=== PATIENT | male | born 1960 | race Caucasian/White ===

== ENCOUNTER 2016-10-16 05:24 | Day surgery (SDC) | payer OTHER ==
[2016-10-05 15:02] VITALS: BMI 52.0
--- NOTE | 2016-10-05 15:32 | PAT Medication Instructions ---
Service Date Oct 05, 2016. Current Home Medication List Acetaminophen (Tylenol Arthritis Ext Rel), 1,300 MG PO TID PRN for RN Bisoprolol Fumarate (Bisoprolol Fumarate), 10 MG PO QAM Calcium Polycarbophil (Fibercon), 2 CAP PO BID Cholecalciferol (Vitamin D3), 4,000 UNITS PO QPM Hydrochlorothiazide (Hydrochlorothiazide), 1 TAB PO QAM Lovastatin (Mevacor), 20 MG PO HS Ocuvite Preservision (Ocuvite Preservision), 1 TAB PO BID Omeprazole (Prilosec), 20 MG PO QAM Oxygen (Oxygen), 3 LITERS NA CPAP Medication Instructions For Your Scheduled Surgery - Hold the following medications the morning of surgery: Ocuvite Preservision (Ocuvite Preservision), 1 TAB PO BID Hydrochlorothiazide (Hydrochlorothiazide), 1 TAB PO QAM Calcium Polycarbophil (Fibercon), 2 CAP PO BID - Take the following medications the morning of surgery with a sip of water OTHERWISE NOTHING TO EAT OR DRINK AFTER MIDNIGHT: Omeprazole (Prilosec), 20 MG PO QAM Bisoprolol Fumarate (Bisoprolol Fumarate), 10 MG PO QAM Acetaminophen (Tylenol Arthritis Ext Rel), 1,300 MG PO TID PRN (may take if needed up to 4 hours prior to surgery) - Take the following medications as scheduled the night before surgery: Cholecalciferol (Vitamin D3), 4,000 UNITS PO QPM Lovastatin (Mevacor), 20 MG PO HS Ocuvite Preservision (Ocuvite Preservision), 1 TAB PO BID Calcium Polycarbophil (Fibercon), 2 CAP PO BID Acetaminophen (Tylenol Arthritis Ext Rel), 1,300 MG PO TID PRN for RN If you have any questions please call us at [phone] or [phone] or [phone]
[2016-10-05 15:58] LABS: BASO % 0.6 %; BASO ABS # 0.05 K/uL (0-0.2); COMPLETE YES; EOS % 2.4 %; HEMATOCRIT 43.4 % (42-52); IG% 0.8 %; LYMPH % 22.3 %; LYMPH ABS # 1.74 K/uL (1.2-3.4); MEAN CELL VOLUME 90.6 fL (80-100); MEAN CORPUSCULAR HEMOGLOBIN 30.3 pg (25-34); MEAN CORPUSCULAR HGB CONC 33.4 g/dl (32-36); MEAN PLATELET VOLUME 10.8 fL (7.4-10.4); MONO % 7.4 %; NEUT % 66.5 %; PLATELET COUNT 189 K/uL (130-400); RED BLOOD COUNT 4.79 M/uL (4.7-6.1)
[2016-10-05 16:18] LABS: BUN/CREATININE RATIO 12.8 (10-20); CALCIUM 8.8 mg/dl (8.5-10.1); CREATININE 1.3 mg/dl (0.60-1.40); POTASSIUM 4.4 mmol/L (3.5-5.1)
--- NOTE | 2016-10-05 16:26 | DIAGNOSTIC IMAGING REPORT ---
CHEST 2 VIEWS ROUTINE CLINICAL HISTORY: Preoperative chest COMPARISON STUDY: No previous studies for comparison. FINDINGS: The heart is mildly enlarged. There is superior mediastinal widening. While this may be secondary to fat deposition given the patient's body habitus, the finding is nonspecific. If further evaluation is desired, CT scanning could be obtained. There is mild interstitial thickening, a finding which may be accentuated by the patient's large body habitus. There is no focal pulmonary consolidation. There is no overt failure. There are no pleural effusions. Degenerative changes are present within the dorsal spine.[ IMPRESSION: Nonspecific soft tissue fullness of the mediastinum. While this may simply represent mediastinal fat deposition, other pathologic processes cannot be excluded. Electronically signed by: Darin Yoon M.D. 10/05/2016 4:24 PM Dictated Date/Time: 10/05/2016 4:22 PM
--- NOTE | 2016-10-15 15:10 | HISTORY & PHYSICAL EXAMINATION ---
DATE OF ADMISSION: 10/16/2016 HISTORY OF PRESENT ILLNESS: The patient is a 56-year-old white male presenting with right hand pain and deformity with loss of motion on the right side of the small finger and ringer finger with a Dupuytren's contracture. The patient notes that it is inhibiting his daily function and would like to have it fixed. PAST MEDICAL HISTORY: Hypertension, dyslipidemia, rheumatoid arthritis, lower back pain, acid reflux, obesity, right kidney cancer. PAST SURGICAL HISTORY: Right kidney removed in 2009. CURRENT MEDICATIONS: O2 oxygen 3 liters per minute, CPAP machine while sleeping with oxygen, 10 mg bisoprolol, fumarate tablet once daily, 650 mg Tylenol Arthritis caplet as needed, PreserVision AREDS twice a day, 625 mg Fibercon caplets twice a day, 20 mg omeprazole capsule once a day, 2000 international units vitamin D3 two per day, 12.5 mg hydrochlorothiazide once daily, 20 mg lovastatin once daily. ALLERGIES: CIPRO, MORPHINE, PENICILLIN, PROVENTIL, Z-REFUGIO, AND SULFA MEDICATION. REVIEW OF SYSTEMS: GENERAL: No night sweats, fevers, chills. CARDIOVASCULAR: No palpitations, he does have dyspnea on exertion. RESPIRATORY: He has complaints of shortness of breath with exertional activity. No palpitations. GI: No nausea, vomiting, diarrhea. : No dysuria, urgency or frequency. PHYSICAL EXAMINATION: HEART: Regular rate and rhythm. No murmur, gallops, or rubs. LUNGS: Clear to auscultation bilaterally. No rales, wheezing or rhonchi. ABDOMEN: Active bowel sounds x4. EXTREMITIES: Right hand shows contracture of the right small finger PIP joint 55 degree contracture, DIP 25 degree contracture, ring finger MP joint is about 10 degrees contracture. DIAGNOSIS: Right hand Dupuytren's of the ring and small finger. PLAN: The patient will be set up for a right hand small finger and ring finger palmar fasciectomy with Dr. Mireles.
[~2016-10-16] VITALS: Ht 188 cm; Wt 184.9 kg
[~2016-10-16 05:24] MED LIST: ACET1TAB84 PO; BISO10TA4 PO; CALC625T PO; CHOL20007 PO; HYDR12.55 PO; LOVA20TA4 PO; MULT-190 PO; OXGN; PRLSR20 PO
[2016-10-16] MEDS ORDERED: LACTATED RINGER'S 1000ML 1,000 ML IV SCH (06:00)
[2016-10-16] MEDS ORDERED: CLINDAMYCIN 600 MG/54 ML D5W IV SCH (06:00)
[2016-10-16 06:05] VITALS: BP 171/65; PULSE 56; TEMP 36.4; O2SAT 96; Ht 188 cm; Wt 184.9 kg
[2016-10-16] MEDS ORDERED: MIDAZOLAM HCL 1 MG/ML 2ML VIAL ONE ×2 (06:38→07:35)
[2016-10-16] MEDS ORDERED: FENTANYL CITRATE INJ 50 MCG/1 ML 2 ML VIAL ONE (06:38)
[2016-10-16] MEDS ORDERED: BUPIVACAINE 0.5 % 5 MG/1 ML MPF 30ML VIAL ONE (06:56)
[2016-10-16] MEDS ORDERED: BUPIVACAINE/EPINEPHRINE 0.5% MPF 1:200,000 30 ML VIAL ONE (06:57)
--- NOTE | 2016-10-16 07:18 | History & Physical Bridge Note ---
H&P Re-Evaluation Bridge Note: I have examined the patient, reviewed the History & Physical and in the interval since the performance of the History & Physical I have noted the following changes of clinical significance: No changes noted I review the PCP note and the PAT testing and evaluation. I d/w Dr Viveros how to best proceed. He feels it is safe to procced with LMAC v General and sedation is not a contradictation
[2016-10-16] MEDS ORDERED: OXYC-57 PO ×2 (07:25→08:29)
--- NOTE | 2016-10-16 07:29 | Discharge Instructions ---
Discharge Instructions Date of Service Oct 16, 2016. Admission Reason for Admission: Right Small & Ring Fingers Dupuytrens Contracture Discharge Discharge Diagnosis / Problem: s/p dupuytrens surgery Discharge Goals Goal(s): Improve function Activity Recommendations Activity Limitations: as noted below Lifting Limitations: no more than 5 pounds Exercise/Sports Limitations: rest today, gradually increase as tolerated May Resume Sexual Activity: when tolerated Shower/Bathe: keep incision dry . Instructions / Follow-Up Instructions / Follow-Up ACTIVITY RECOMMENDATIONS: * Avoid lifting anything heavier than a medium water glass until your first post operative visit. SPECIAL CARE INSTRUCTIONS: * Your bandage should be left in place until seen by Physical Therapy. * Some drainage onto the dressing may occur. This is normal. * If the bandage feels excessively tight, you may loosen the elastic bandage. Then call the physician's office for further instructions. * If possible, keep your hand elevated above the level of your heart for the first 2 post operative days. You may use a sling if necessary. * You should move your fingers regularly (50-100 motions per hour) unless otherwise instructed. SPECIAL PRECAUTIONS: * If you notice increased drainage, fever over 101 degrees F. or severe, unremitting pain, call your physician/office at . * You may have been prescribed pain medication. If you experience nausea and/or skin rash, discontinue this medication and contact our office for an alternative medication. FOLLOW UP VISIT: If appointment is not already scheduled: Please call [facility] to make a follow-up appointment after your surgery at . SHOULD BE SEEN BY PHYSICAL THERAPY IN 3-5 DAYS, AND THEN DR GARCIA OR HIS PA IN 10-14 DAYS ICE AND ELVEATE THE HAND KEEP THE CAST ON AND CLEAN AND DRY UNTIL SEEN BY PT Current Hospital Diet Patient's current hospital diet: Discharge Diet Recommended Diet: Regular Diet Pending Studies Studies pending at discharge: no Medical Emergencies . Who to Call and When: Medical Emergencies: If at any time you feel your situation is an emergency, please call 911 immediately. . Non-Emergent Contact Non-Emergency issues call your: Primary Care Provider . "Provider Documentation" section prepared by Richard Case. VTE Core Measure Inpt VTE Proph given/why not?: Contraindicated
[2016-10-16] MEDS ORDERED: LIDOCAINE HCL 1% 20 ML VIAL ONE (07:36)
[2016-10-16] MEDS ORDERED: ONDANSETRON INJ 2 MG/ML 2 ML VIAL IV PRN (08:00)
[2016-10-16] MEDS ORDERED: ATROPINE SULFATE 0.1 MG/ML 5ML SYR IV PRN (08:00)
[2016-10-16] MEDS ORDERED: EpHEDrine SULFATE INJ 50 MG/ML AMP IV PRN (08:00)
[2016-10-16] MEDS ORDERED: DEXAMETHASONE SOD INJ 4 MG/ML VIAL ONE (08:04)
[2016-10-16] MEDS ORDERED: ONDANSETRON INJ 2 MG/ML 2 ML VIAL ONE (08:04)
--- NOTE | 2016-10-16 08:44 | [facility] Post Operative Brief Note ---
Immediate Operative Summary Operative Date Oct 16, 2016. Pre-Operative Diagnosis Right hand Dupuytren's of the ring and small finger. Post-Operative Diagnosis Same as preoperative diagnosis Procedure(s) Performed Right Little Finger Proximal Interphalangeal Fasciectomy; Right Ring Finger Palmar Fasciectomy Surgeon Dr Mireles Estimated Blood Loss 2CC Findings dupuytrens contracture noted Specimens None per surgeon Anesthesia digital block with sedation Complication(s) None Disposition Recovery Room / PACU
[2016-10-16] MEDS ORDERED: OXYCODONE/ACETAMINOPHEN 5-325 TAB PO PRN ×2 (08:45)
--- NOTE | 2016-10-16 09:07 | OPERATIVE REPORT ---
DATE OF OPERATION: 10/16/2016 PREOPERATIVE DIAGNOSIS: Right small finger Dupuytren's contracture. POSTOPERATIVE DIAGNOSIS: Same plus right small finger abductor digiti minimi cord. PROCEDURE: 1. Right small finger palmar fasciectomy. 2. Right small finger abductor digiti minimi tenotomy. SURGEON: Dr. Mireles. ARTIST MODEL: Joanna Malcolm PA-C. ANESTHESIA: Digital block with sedation. INDICATIONS: This is a gentleman with progressive Dupuytren's contracture of the PIP and DIP joint of the right small finger. He presents for palmar fasciectomy, other work as indicated. The risks and benefits have been discussed including, but not limited to, risk of infection, nerve injury, stiffness, loss of motion, failure to improve, etc. The patient is agreeable and wishes to proceed. OPERATION AND FINDINGS: DESCRIPTION OF OPERATION: I injected a mixture of lidocaine and Marcaine as a digital block prior to the procedure. After the patient was prepped and draped in the usual sterile fashion I made a zigzag Yuriy incision from just proximal to the PIP joint out to distal to the DIP joint. Dissection was carried down through the skin and subcutaneous tissues. Both digital nerve were identified and these were retracted and I placed vessel loops around these. A spiral cord was identified on the radial aspect of the PIP joint. This was excised in full. This did extend into a retrovascular cord as well. The neurovascular bundle was protected, retrovascular cord was excised. I was able to get the DIP joint completely straight. There was still residual contracture at the PIP joint. I identified an abductor digiti minimi cord and I performed abductor digiti minimi tenotomy. This did result in complete correction of contracture of the PIP joint, both of the joints were able to be fully extended. Tourniquet was let down, hemostasis was obtained with bipolar electrocautery. The finger did show some sluggish capillary refill, but this did improve with time. Skin was closed in Y-to-V fashion with 4-0 Vicryl Rapide. The patient was placed in a volar splint and sent to the PACU in stable condition. I attest to the content of the Intraoperative Record and any orders documented therein. Any exceptions are noted below. [facility]ITALMiguel
--- NOTE | 2016-10-16 09:27 | Anesthesiology Progress Note ---
Anesthesia Post Op Note Date & Time Oct 16, 2016 at 09:27 Vital Signs Pain Intensity: 0 Vital Signs Past 12 Hours Date Time Temp Pulse Resp B/P Pulse Ox O2 Delivery O2 Flow Rate FiO2 10/16/16 09:15 36.5 59 16 142/65 94 Room Air 10/16/16 09:05 54 16 116/47 95 Nasal Cannula 3 10/16/16 08:55 54 16 106/58 95 Nasal Cannula 3 10/16/16 08:48 37.2 56 16 117/62 99 Nasal Cannula 3 10/16/16 06:05 36.4 56 20 171/65 96 Nasal Cannula 3 Notes Mental Status: alert / awake / arousable, participated in evaluation Pt Amnestic to Procedure: Yes Nausea / Vomiting: adequately controlled Pain: adequately controlled Airway Patency, RR, SpO2: stable & adequate BP & HR: stable & adequate Hydration State: stable & adequate Anesthetic Complications: no major complications apparent
[2016-10-16 09:35] VITALS: BP 148/69; PULSE 52; TEMP 36.6; O2SAT 97
[2016-10-16 10:05] VITALS: BP 163/74; PULSE 59; TEMP 36.7; O2SAT 97
== END 2016-10-16 10:30 | disposition home or self-care (01) ==
LOC: C.ACU 05:24
PROVIDERS: ATTEND Orthopaedic Surgery
DX: M72.0 Palmar fascial fibromatosis [Dupuytren] (principal); I10 Essential (primary) hypertension; M06.9 Rheumatoid arthritis, unspecified; E78.5 Hyperlipidemia, unspecified; E66.9 Obesity, unspecified